=== PATIENT | female | born 1930 | race Caucasian/White ===

== ENCOUNTER 2019-05-11 01:07 | Inpatient (IN) | payer MEDICARE ==
[~2019-05-11] VITALS: Ht 152.4 cm; Wt 73.8 kg
[2019-05-11] VITALS (21 sets, daily range): BP systolic 99–161; BP diastolic 52–103
[~2019-05-11 01:07] MED LIST: ASPI81TA26 PO; CALCTAB68 PO; COLA100C5 PO; COUM2.5T17 PO; FISH100049 PO; NATU400T PO; PRED1SOL3 OS; PREDOPD OS; PROL0.072 OS; SENO8.6T5 PO; TYLE325T5 PO
[2019-05-11] MEDS: NS 1,000 ML IV SCH ×2 (03:15→17:48)
[2019-05-11 03:38] LABS: HEMATOCRIT 32.9 % (36.0-47.0); HEMOGLOBIN 10.8 g/dl (12.0-15.5); MEAN CORPUSCULAR HGB CONC 32.8 g/dl (32.0-36.5); MEAN CORPUSCULAR VOLUME 97.6 fl (80.0-96.0); PLATELET COUNT, AUTOMATED 242 10^3/uL (150-450); RED BLOOD COUNT 3.37 10^6/uL (4.00-5.40); WHITE BLOOD COUNT 9.7 10^3/uL (4.0-10.0)
[2019-05-11] MEDS ORDERED: VITA400C56 PO (03:41)
[2019-05-11] MEDS ORDERED: CALC600T18 PO (03:41)
[2019-05-11] MEDS ORDERED: ASPI-161 PO (03:41)
[2019-05-11] MEDS ORDERED: OMEG10002 PO (03:41)
[2019-05-11 03:55] LABS: INR 1.05; PROTHROMBIN TIME 13.5 SECONDS (11.8-14.0)
--- NOTE | 2019-05-11 03:55 | HPEPDOC ---
[facility] Medical History & Physical Date of Admission May 11, 2019 Date of Service: May 11, 2019 Primary Care Physician: Sheldon Buckley Attending Physician: TAYLOR MACIEL MD History and Physical TIME OF SERVICE: 2:50 AM CHIEF COMPLAINT: Lower GI bleed HISTORY OF PRESENT ILLNESS: This is a 88-year-old female who initially presented to [facility] with complaints of 2 episodes of bright red blood per rectum. The first episode was around 12 noon and second episode was in the evening. She has hemorrhoids, often strains with bowel movements and usually takes Metamucil; she did not take her dose of Metamucil yesterday. She she had a similar episode of bright red blood per rectum 3 years ago, was transferred to [facility], given a blood transfusion and a colonoscopy, which she reports was unremarkable. Prior to the episodes she denied having abdominal pain, denied having fever, denied having chest pain, denied having nausea, vomiting, and denied being told that she looks more pale than usual. Per discussion with Dr. Buchanan at [facility] hemoccult was positive. On initial arrival, her blood pressure was 161/76, heart rate was 74, O2 sats 97%, and heart rate ranged from 60-70 bpm. WBC #8.2, hemoglobin 12.2, platelet #263, INR 1, sodium 140, potassium 4.0, chloride 104, bicarbonate 26, BUN 23, creatinine 0.9, glucose 125, and GFR 59. Dr. Buchanan requested transfer, so she could be evaluation by GI. REVIEW OF SYSTEMS: 12 point review of systems negative except as listed in HPI PAST MEDICAL/ SURGICAL HISTORY: Hemorrhoids. Osteoporosis. Prediabetes. Dyslipidemia. Unsteady gait, walks with a cane Status post hysterectomy. Status post appendectomy. Status post bilateral salpingo-oophorectomy. 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 Lives at [facility] living [facility] in [facility] FAMILY HISTORY: Grandmother had an [place] ALLERGIES: Please see below. HOME MEDICATIONS: Please see below. PHYSICAL EXAMINATION: VITAL SIGNS: Please see below. GENERAL APPEARANCE: Well-nourished, well-developed, not in apparent distress, there is no scleral icterus HEENT: Normocephalic, atraumatic. Mucous membranes moist and pink CARDIOVASCULAR: Regular rate and rhythm. No murmurs, rubs or gallops LUNGS: Good auscultation bilaterally on room air ABDOMEN: Muscles are hypoactive. Abdomen is soft and not tender with palpation MUSCULOSKELETAL: Range of motion is intact in all 4 extremities INTEGUMENT: Does not have generalized pallor NEUROLOGICAL: Cranial nerves II-12 are grossly intact. Speech is not dysarthric PSYCHIATRIC: Alert and oriented to person, place and time, able to understand and follow commands LABORATORY DATA: See HPI IMAGING: n/s MICROBIOLOGY: n/a ASSESSMENT: Ms. Stringer is an 88-year-old female with a past medical history of lower GI bleed, hemorrhoids, osteoporosis, prediabetes, Elaine 1 malformation, & dyslipidemia, who will be admitted for evaluation of lower GI bleed . PLAN: 1. Lower GI bleed May be due to: hemorrhoids, diverticulosis, angiodysplasia's (most common cause of small-bowel bleeding in older patients), AVM, anal fissure Zuni score to predict risk of readmission for GI bleed ( using admission vitals at from outside hospital) = 12 points = 87-89% probability of safe discharge in the absence of rebleeding blood transfusion, therapeutic intervention, 28 day readmission, or ). Discharge NOT recommended. Consider admission with further workup and resuscitation as necessary. Plan: admit to general medical floor/ / CLD w IVF pending GI consult / follow- up CBC in the morning 2. Anemia Unclear what her baseline hemoglobin is Plan: Follow particular side count and iron panel 3. Osteoporosis. Plan: Continue home meds 4. Prediabetes. Plan: Follow-up A1c and glucose on chemistry 5. Unsteady gait Walks with cane at home Plan: Follow precautions DVT prophylaxis with SCDs because of lower GI bleed Disposition pending clinical course / PFS consult for assistance getting back go assisted living facility Laboratory Data Labs 24H Laboratory Tests 2 05/11/19 03:31: Nucleated Red Blood Cells % (auto) 0.0 CBC/BMP Laboratory Tests 05/11/19 03:31 Red Blood Count 3.37 L, Mean Corpuscular Volume 97.6 H, Mean Corpuscular Hemogl obin 32.0, Mean Corpuscular Hemoglobin Concent 32.8, Red Cell Distribution Width 13.1 Home Medications Scheduled Aspirin (Aspirin EC) 81 Mg Tablet.dr, 81 MG PO QHS Calcium Carbonate/Vitamin D3 (Calcium 600-Vit D3 400 Tablet) 1 Each Tablet, 1 TAB PO QHS [place]-3/Dha/Epa/Fish Oil (Fish Oil 1,000 mg Softgel) 1 Each Capsule, 1 CAP PO QHS Vitamin E (Vitamin E) 400 Unit Capsule, 400 UNIT PO QHS Allergies Coded Allergies: No Known Drug Allergies (Verified Allergy, Unknown, 05/11/19) A-FIB/CHADSVASC A-FIB History Current/History of A-Fib/PAF?: No Current PO Anticoag Therapy: No TAYLOR MACIEL MD May 11, 2019 03:55
--- NOTE | 2019-05-11 03:58 | IPNPDOC ---
Text Note Date of Service The patient was seen on 05/11/19. NOTE Rapid response called at 3:10 AM Reason: Syncopal episode Shortly after examining the patient, she went to the bathroom and had a syncopal episode. Per discussion with the nurse, who accompanied her to the restroom she appeared to have a syncopal episode while straining and defecated about 400 mls of sofie blood. Her eyes rolled to the back of her head and shortly thereafter, she regained consciousness. Currently the patient reports feeling shaky but denies having any abdominal pain. BP 129/61// O2 97%// P 65 // R 16 Gen. slightly pale. CVS regular rate and rhythm. No murmurs, rubs or gallops. Psych alert and oriented to person, place and time, able to understand and follow commands. Assessment and plan: #Syncope, likely vasovagal in nature. Plan: Transfer to PCU/telemetry #Acute Blood Loss Anemia 2/2 LGIB Plan:follow-up CBC, CMP, type & screen, and coags/start normal saline/nothing by mouth Rapid response ended at 3:25 VS,Fishbone, I+O VS, Fishbone, I+O Laboratory Tests 05/11/19 03:31 Red Blood Count 3.37 L, Mean Corpuscular Volume 97.6 H, Mean Corpuscular Hemoglobin 32.0, Mean Corpuscular Hemoglobin Concent 32.8, Red Cell Distribution Width 13.1 TAYLOR MACIEL MD May 11, 2019 03:58
[2019-05-11 04:03] LABS: BILIRUBIN,TOTAL 0.5 MG/DL (0.2-1.0); CALCIUM LEVEL 8.9 MG/DL (8.8-10.2); GLOMERULAR FILTRATION RATE 55.6 (>32); POTASSIUM SERUM 4.1 MEQ/L (3.5-5.1); TOTAL PROTEIN 6.1 GM/DL (6.4-8.2)
[2019-05-11 04:50] LABS: PERCENT SATURATION 16.3 % (13.2-45.0)
[2019-05-11] MEDS ORDERED: MOM 30ML SUSPENSION UDC PO ONE (13:00)
[2019-05-11] MEDS ORDERED: POLYETHYLENE GLYCOL (MIRALAX) 238GM BOTTLE PO ONE (17:00)
[2019-05-12] VITALS (8 sets, daily range): BP systolic 125–178; BP diastolic 59–87
[2019-05-12 04:19] LABS: HEMATOCRIT 25.1 % (36.0-47.0); MEAN CORPUSCULAR HGB CONC 32.7 g/dl (32.0-36.5); PLATELET COUNT, AUTOMATED 188 10^3/uL (150-450); RED BLOOD COUNT 2.56 10^6/uL (4.00-5.40); WHITE BLOOD COUNT 7.1 10^3/uL (4.0-10.0)
[2019-05-12 04:22] LABS: HEMOGLOBIN 8.2 g/dl (12.0-15.5)
[2019-05-12 04:34] LABS: BLOOD UREA NITROGEN 17 MG/DL (7-18); CALCIUM LEVEL 8.1 MG/DL (8.8-10.2); CARBON DIOXIDE LEVEL 30 MEQ/L (21-32); CHLORIDE LEVEL 111 MEQ/L (98-107); CREATININE FOR GFR 0.85 MG/DL (0.55-1.30); GLOMERULAR FILTRATION RATE > 60.0 (>32); GLUCOSE, FASTING 98 MG/DL (70-100); POTASSIUM SERUM 4.1 MEQ/L (3.5-5.1); SODIUM LEVEL 144 MEQ/L (136-145)
[2019-05-12] MEDS ORDERED: POLYETHYLENE GLYCOL (MIRALAX) 238GM BOTTLE PO ONE (05:00)
[2019-05-12] MEDS: NS 1,000 ML IV SCH ×2 (09:06→19:24)
[2019-05-12 09:08] LABS: HEMATOCRIT 27.8 % (36.0-47.0); HEMOGLOBIN 9.1 g/dl (12.0-15.5); MEAN CORPUSCULAR HEMOGLOBIN 32.4 pg (27.0-33.0); MEAN CORPUSCULAR HGB CONC 32.7 g/dl (32.0-36.5); MEAN CORPUSCULAR VOLUME 98.9 fl (80.0-96.0); PLATELET COUNT, AUTOMATED 201 10^3/uL (150-450); RED BLOOD COUNT 2.81 10^6/uL (4.00-5.40); WHITE BLOOD COUNT 7.6 10^3/uL (4.0-10.0)
--- NOTE | 2019-05-12 10:48 | IPNPDOC ---
Subjective Date Seen The patient was seen on 05/12/19. Subjective Chief Complaint/HPI Patient had a multiple bowel movements secondary to colonoscopy prep. She had some bleeding initially but later on was clear. Scheduled for colonoscopy General: Denies: ROS Unobtainable, Chills, Night Sweats, Fatigue, Malaise, Normal Appetite, Other Symptoms Constitutional: Denies: Chills, Fever, Malaise, Night Sweats, Weakness, Fatigue, Weight Loss, Lethargy, Other Pulmonary: Denies: Dyspnea, Cough, Pleuritic Chest Pain, Other Symptoms Cardiovascular: Denies: Chest Pain, Palpitations, Orthopnea, Paroxysmal Noc. Dyspnea, Edema, Lt Headedness, Other Symptoms Gastrointestinal: Denies: Nausea, Vomiting, Abdominal Pain, Diarrhea, C onstipation, Melena, Hematochezia, Other Symptoms Hematologic: Denies: Bruising, Bleeding Excessively, Petecchia, Purpura, Enlarged Lymph Nodes, Other Hematologic Endocrine: Denies: Polydipsia, Polyphagia, Polyuria, Heat Intolerance, Cold Intolerance, Other Endocrine Sx Musculoskeletal: Denies: Neck Pain, Back Pain, Shoulder Pain, Arm Pain, Hand Pain, Leg Pain, Foot Pain, Joint Pain, Muscle Pain, Spasms, Other Symptoms Neurological: Denies: Weakness, Numbness, Incoordination, Change in speech, Confusion, Seizures, Other Symptoms Psych: Denies: Mood Normal, Anxiety, Depression, Memory Issues, Thoughts of Self Harm, Anger, Thoughts of Harming Other, Other Psych Objective Physical Examination General Exam: Positive: Alert, Cooperative Eye Exam: Positive: PERRLA, Conjunctiva & lids normal (`) Chest Exam: Positive: Clear to auscultation, Normal air movement Heart Exam: Positive: Rate Normal, Normal S1, Normal S2 Abdomen Exam: Positive: Normal bowel sounds, Soft Extremity Exam: Positive: Normal pulses Skin Exam: Positive: Nl turgor and temperature Assessment /Plan Problems (1) Lower GI bleed Status: Acute Problem Text: Patient is clinically stable Globin today is Scheduled for colonoscopy today Endoscopy prep and progress Further, as per colonoscopy report Monitor H&H DD home meds (2) Blood loss anemia Status: Acute Problem Text: Acute blood loss anemia Iron deficiency workup was essentially negative Will monitor H&H and transfuse if needed Colonoscopy scheduled today to find the cause of bleeding Plan/VTE VTE Prophylaxis Ordered?: Yes VS, I&O, 24H, Fishbone Vital Signs/I&O Vital Signs Date Time Temp Pulse Resp B/P (MAP) Pulse Ox O2 Delivery O2 Flow Rate FiO2 05/12/19 04:00 97.4 73 18 125/85 (98) 96 I&O- Last 24 Hours up to 6 AM 05/12/19 06:00 Intake Total 4630 ml Output Total 3950 ml Balance 680 ml Laboratory Data 24H LABS Laboratory Tests 2 05/12/19 04:04: Nucleated Red Blood Cells % (auto) 0.0, Anion Gap 3L, Glomerular Filtration Rate > 60.0, Blood Urea Nitrogen 17, Creatinine 0.85, Sodium Level 144, Potassium Level 4.1, Chloride Level 111H, Carbon Dioxide Level 30, Calcium Level 8.1L 05/12/19 08:59: Nucleated Red Blood Cells % (auto) 0.0 CBC/BMP Laboratory Tests 05/11/19 14:55 05/11/19 21:19 05/12/19 04:04 Red Blood Count 2.56 L, Mean Corpuscular Volume 98.0 H, Mean Corpuscular Hemoglobin 32.0, Mean Corpuscular Hemoglobin Concent 32.7, Red Cell Distribution Width 13.2, Calcium Level 8.1 L 05/12/19 08:59 Red Blood Count 2.81 L, Mean Corpuscular Volume 98.9 H, Mean Corpuscular Hemoglobin 32.4, Mean Corpuscular Hemoglobin Concent 32.7, Red Cell Distribution Width 13.2 LA GRISSOM MD May 12, 2019 10:48
[2019-05-12] MEDS ORDERED: propofoL 200 MG/20 ML VIAL As Ordered ONE ×2 (14:02→14:20)
--- NOTE | 2019-05-12 14:37 | ROOR ---
Patient Name: Marleni Stringer Procedure Date: 05/12/2019 2:01 PM Date of : 1930 Age: 88 Room: [facility] Gender: Female Note Status: Finalized Procedure: Colonoscopy Indications: Hematochezia Providers: Juliano BOYLE MD Referring MD: MARSHA MONTIEL MD, 2. Inpatient 2. Inpatient Requesting Provider: Medicines: Monitored Anesthesia Care Complications: No immediate complications. Procedure: Pre-Anesthesia Assessment: - The heart rate, respiratory rate, oxygen saturations, blood pressure, adequacy of pulmonary ventilation, and response to care were monitored throughout the procedure. The Colonoscope was introduced through the anus and advanced to 10 cm into the ileum. The colonoscopy was performed without difficulty. The patient tolerated the procedure well. The quality of the bowel preparation was good. Findings: The perianal and digital rectal examinations were normal. Multiple small and large-mouthed diverticula were found in the entire colon, left colon and right colon. There was evidence of past bleeding from the diverticular opening in the form of pink colonic fluid and a few small blood clots. Incident diverticulum is not found. Hemorrhoids were found during retroflexion. The hemorrhoids were moderate. Impression: - Moderate diverticulosis in the entire examined colon, in the left colon and in the right colon. Old blood/pink fluid seen to transverse colon. No active bleeding is present. - Moderate internal Hemorrhoids. - The colon and terminal ileum are otherwise normal. Recommendation: - Rec - Observe for another 24 hrs for potential recurrent diverticular bleeding. - Clear liquid diet. - Advance diet as tolerated staring tomorrow if no further bleeding. - I will sign off at this time. Please call me PRN. - She does not need a follow up with me as outpatient. Juliano Boyle MD Juliano BOYLE MD 05/12/2019 2:37:07 PM Electronically signed by Juliano BOYLE MD Number of Addenda: 0 Note Initiated On: 05/12/2019 2:01 PM Estimated Blood Loss: Estimated blood loss: none.
[2019-05-13 02:00] VITALS: BP 114/62
[2019-05-13 05:57] LABS: BASO % 0.5 % (0.0-1.0); EOS # 0.3 10^3/uL (0.0-0.5); HEMATOCRIT 24.1 % (36.0-47.0); LYMPH # 1.8 10^3/uL (1.5-5.0); LYMPH % 27.1 % (24.0-44.0); MEAN CORPUSCULAR HEMOGLOBIN 33.1 pg (27.0-33.0); MEAN CORPUSCULAR HGB CONC 33.2 g/dl (32.0-36.5); MEAN CORPUSCULAR VOLUME 99.6 fl (80.0-96.0); MONO # 0.5 10^3/uL (0.0-0.8); MONO % 8.3 % (0.0-5.0); NEUTROPHILS # 3.9 10^3/uL (1.5-8.5); NEUTROPHILS % 59.9 % (36.0-66.0); PLATELET COUNT, AUTOMATED 190 10^3/uL (150-450); RED BLOOD COUNT 2.42 10^6/uL (4.00-5.40); WHITE BLOOD COUNT 6.5 10^3/uL (4.0-10.0)
[2019-05-13 06:00] VITALS: BP 115/61
[2019-05-13 06:22] LABS: ALBUMIN 2.5 GM/DL (3.2-5.2); ALT/SGPT 11 U/L (12-78); BILIRUBIN,TOTAL 0.3 MG/DL (0.2-1.0); BLOOD UREA NITROGEN 9 MG/DL (7-18); CALCIUM LEVEL 8.1 MG/DL (8.8-10.2); CARBON DIOXIDE LEVEL 26 MEQ/L (21-32); CHLORIDE LEVEL 114 MEQ/L (98-107); GLOMERULAR FILTRATION RATE > 60.0 (>32); GLUCOSE, FASTING 87 MG/DL (70-100); POTASSIUM SERUM 3.6 MEQ/L (3.5-5.1); SODIUM LEVEL 146 MEQ/L (136-145); TOTAL PROTEIN 5.2 GM/DL (6.4-8.2)
--- NOTE | 2019-05-13 13:30 | DS.PDOC ---
Discharge Summary General Date of Admission May 12, 2019 at 10:43 Date of Discharge 05/13/19 Attending Physician: LA GRISSOM MD Discharge Summary PROCEDURES PERFORMED DURING STAY: None. ADMITTING DIAGNOSES: 1. Lower GI bleed. DISCHARGE DIAGNOSES: 1. Acute diverticular bleed, internal hemorrhoids. COMPLICATIONS/CHIEF COMPLAINT: Lower Gi Bleed. HISTORY OF PRESENT ILLNESS: This is a 88-year-old female who initially presented to [facility] with complaints of 2 episodes of bright red blood per rectum. The first episode was around 12 noon and second episode was in the evening. She has hemorrhoids, often strains with bowel movements and usually takes Metamucil; she did not take her dose of Metamucil yesterday. She she had a similar episode of bright red blood per rectum 3 years ago, was transferred to [facility], given a blood transfusion and a colonoscopy, which she reports was unremarkable. Prior to the episodes she denied having abdominal pain, denied having fever, denied having chest pain, denied having nausea, vomiting, and denied being told that she looks more pale than usual.. HOSPITAL COURSE: Patient was admitted with possible lower GI bleed . H&H was monitored , IV fluids were continued and patient was seen by gastroenterology. Patient subsequently gone had a colonoscopy done which showed :Moderate diverticulosis in the entire examined colon, in the left colon and in the right colon. Old blood/pink fluid seen to transverse colon. No active bleeding is present Moderate internal Hemorrhoids.The colon and terminal ileum are otherwise normal. GI recommended to observation 24 hours post colonoscopy to watch out for recurrent diverticular bleed, but patient remained asymptomatic. Initially was started clinically liquid diet which was progress to regular diet this morning. Patient tolerated her meals very well and she is being discharged today and follow-up with the PCP in one week. GI does not wish to follow her up anymore. . DISCHARGE MEDICATIONS: Please see below. ALLERGIES: Please see below. PHYSICAL EXAMINATION ON DISCHARGE: VITAL SIGNS: Please see below. GENERAL: Within normal limits HEENT: PERRLA, extraocular muscles intact NECK: Supple CARDIOVASCULAR EXAMINATION: S1, S2, regular RESPIRATORY EXAMINATION: Clear to A&P ABDOMINAL EXAMINATION: , Soft, nontender, bowel sounds present EXTREMITIES: No clubbing, cyanosis, edema SKIN: Within normal limits NEUROLOGICAL EXAMINATION: . No focal motor sensory deficit PSYCHIATRIC EXAMINATION: Normal LABORATORY DATA: Please see below. IMAGING: None. PROGNOSIS: Good ACTIVITY: As tolerated. DIET: As tolerated DISCHARGE PLAN: To follow-up with PCP in one week DISPOSITION: . DISCHARGE INSTRUCTIONS: 1. As per discharge instructions. ITEMS TO FOLLOWUP ON ON OUTPATIENT: 1. Follow with PCP in one week. DISCHARGE CONDITION: Stable. TIME SPENT ON DISCHARGE: 38 minutes. Vital Signs/I&Os Vital Signs Date Time Temp Pulse Resp B/P (MAP) Pulse Ox O2 Delivery O2 Flow Rate FiO2 05/13/19 06:00 96.6 64 18 115/61 (79) 95 I&O- Last 24 Hours up to 6 AM 05/13/19 06:00 Intake Total 2085 ml Output Total 1200 ml Balance 885 ml Laboratory Data Labs 24H Laboratory Tests 2 05/13/19 05:30: Immature Granulocyte % (Auto) 0.2, White Blood Count 6.5, Red Blood Count 2.42L, Hemoglobin 8.0L, Hematocrit 24.1L, Mean Corpuscular Volume 99.6H, Mean Corpuscular Hemoglobin 33.1H, Mean Corpuscular Hemoglobin Concent 33.2, Red Cell Distribution Width 13.2, Platelet Count 190, Neutrophils (%) (Auto) 59.9, Lymphocytes (%) (Auto) 27.1, Monocytes (%) (Auto) 8.3H, Eosinophils (%) (Auto) 4.0H, Basophils (%) (Auto) 0.5, Neutrophils # (Auto) 3.9, Lymphocytes # (Auto) 1.8, Monocytes # (Auto) 0.5, Eosinophils # (Auto) 0.3, Basophils # (Auto) 0.0, Nucleated Red Blood Cells % (auto) 0.0, Anion Gap 6L, Glomerular Filtration Rate > 60.0, Blood Urea Nitrogen 9, Creatinine 0.80, Sodium Level 146H, Potassium Level 3.6, Chloride Level 114H, Carbon Dioxide Level 26, Calcium Level 8.1L, Aspartate Amino Transf (AST/SGOT) 15, Alanine Aminotransferase (ALT/SGPT) 11L, Alkaline Phosphatase 56, Total Bilirubin 0.3, Total Protein 5.2L, Albumin 2.5L, Albumin/Globulin Ratio 0.93L CBC/BMP Laboratory Tests 05/13/19 05:30 Red Blood Count 2.42 L, Mean Corpuscular Volume 99.6 H, Mean Corpuscular Hemog lobin 33.1 H, Mean Corpuscular Hemoglobin Concent 33.2, Red Cell Distribution Width 13.2, Neutrophils (%) (Auto) 59.9, Lymphocytes (%) (Auto) 27.1, Monocytes (%) (Auto) 8.3 H, Eosinophils (%) (Auto) 4.0 H, Basophils (%) (Auto) 0.5, Neutrophils # (Auto) 3.9, Lymphocytes # (Auto) 1.8, Monocytes # (Auto) 0.5, Eosinophils # (Auto) 0.3, Basophils # (Auto) 0.0, Calcium Level 8.1 L, Aspartate Amino Transf (AST/SGOT) 15, Alanine Aminotransferase (ALT/SGPT) 11 L, Alkaline Phosphatase 56, Total Bilirubin 0.3, Total Protein 5.2 L, Albumin 2.5 L Discharge Medications Scheduled Aspirin (Aspirin EC) 81 Mg Tablet.dr, 81 MG PO QHS, (Reported) Calcium Carbonate/Vitamin D3 (Calcium 600-Vit D3 400 Tablet) 1 Each Tablet, 1 TAB PO QHS, (Reported) [place]-3/Dha/Epa/Fish Oil (Fish Oil 1,000 mg Softgel) 1 Each Capsule, 1 CAP PO QHS, (Reported) Vitamin E (Vitamin E) 400 Unit Capsule, 400 UNIT PO QHS, (Reported) Allergies Coded Allergies: No Known Drug Allergies (Verified Allergy, Unknown, 05/11/19) LA GRISSOM MD May 13, 2019 13:30
== END 2019-05-13 13:50 | disposition home or self-care (01) | DRG 378 ==
LOC: INTOOBSV 03:10 → M MS5PR 03:10 → M ICU 03:42 → OBSVTOIN 05-12 10:43 → M MSPAV 05-12 13:50
PROVIDERS: ADMIT Internal Medicine; ATTEND Internal Medicine
PROC: 0DJD8ZZ Inspection of Lower Intestinal Tract, Via Natural or Artificial Opening Endoscopic (ICD-10-PCS; principal; 2019-05-12 14:30)
DX: K57.31 Diverticulosis of large intestine without perforation or abscess with bleeding (principal); D62 Acute posthemorrhagic anemia; M81.0 Age-related osteoporosis without current pathological fracture; R73.03 Prediabetes; E78.5 Hyperlipidemia, unspecified; R26.81 Unsteadiness on feet; K64.8 Other hemorrhoids; Z90.49 Acquired absence of other specified parts of digestive tract; Z90.710 Acquired absence of both cervix and uterus; Z87.820 Personal history of traumatic brain injury; Z79.82 Long term (current) use of aspirin; Z79.899 Other long term (current) drug therapy